=== PATIENT | female | born 1975 | race Caucasian/White ===

== ENCOUNTER 2023-02-02 13:54 | Emergency (ER) | payer MEDICAID ==
[~2023-02-02] VITALS: Ht 154.9 cm; Wt 131.8 kg
[2023-02-02 14:02] VITALS: TEMP 98.2
[2023-02-02] MEDS ORDERED: IBUP-1492 PO (15:37)
[2023-02-02] MEDS ORDERED: IBUPROFEN 600 MG TABLET PO ONE (15:45)
[2023-02-02] MEDS ORDERED: ACETAMINOPHEN 500 MG TABLET PO ONE (17:45)
[2023-02-02] MEDS ORDERED: ACET-3385 PO (18:00)
[2023-02-02 18:29] VITALS: BP 137/92; PULSE 87; RESP 16
== END 2023-02-02 18:37 | disposition home or self-care (01) ==
LOC: EMS 13:54
DX: M72.2 Plantar fascial fibromatosis (principal); Z88.0 Allergy status to penicillin
CPT/HCPCS: 99284; 73610-TC; 73650-TC; Z7502; Z7610